=== PATIENT | male | born 1950 | race Caucasian/White ===

== ENCOUNTER 2017-06-23 13:00 | Emergency (ER) | payer OTHER ==
[~2017-06-23] VITALS: Ht 177.8 cm; Wt 80.8 kg
[2017-06-23 13:06] VITALS: BP 127/76; PULSE 67; TEMP 36.6; O2SAT 98; Ht 177.8 cm; Wt 80.8 kg
[2017-06-23] MEDS ORDERED: LISI-725 PO (13:20)
[2017-06-23] MEDS ORDERED: ASPI-435 PO (13:20)
[2017-06-23] MEDS ORDERED: ATOR-54 PO (13:20)
[2017-06-23] MEDS ORDERED: AMLO5TAB3 PO (13:20)
--- NOTE | 2017-06-23 14:10 | DIAGNOSTIC IMAGING REPORT ---
RIGHT KNEE 3 VIEWS CLINICAL HISTORY: Right knee twisting injury. FINDINGS: AP, crosstable lateral, and sunrise views of the right knee are obtained. No prior studies are available for comparison at the time of dictation. The skeletal structures are well mineralized. No fracture is seen. The joint spaces appear maintained. Minimal degenerative beaking is noted in the tibial spine. A joint effusion is suspected. Mild overlying soft tissue edema is observed. A calcified fabella is incidentally noted. IMPRESSION: Soft tissue swelling and joint effusion. No right knee fracture is seen. Electronically signed by: Ab Holliday M.D. 06/23/2017 2:09 PM Dictated Date/Time: 06/23/2017 2:08 PM
--- NOTE | 2017-06-23 14:26 | EMERGENCY ROOM VISIT NOTE ---
ED Visit Note First contact with patient: 13:16 CHIEF COMPLAINT: Right knee injury at work today HISTORY OF PRESENT ILLNESS: Patient is a 67-year-old white male who works as an instructor at [employer] who presents to the emergency department for evaluation of right knee pain after an injury that occurred about 40 half hours ago. He states he was walking and he got caught against a concrete slab and twisted the right knee. He complains of pain and swelling in the knee. He is able to bear weight, but has been limping. He was not able to take any medications, nor perform any intervention for his symptoms. He rates his discomfort a 4/10. REVIEW OF SYSTEMS: Review of systems as per HPI. All other systems reviewed were negative. At least 6 systems reviewed. PMH: Electronic medical records are reviewed and summarized as above/below. See Problem List. SOCIAL HISTORY: Patient lives at home. Nonsmoker. Employed. PHYSICAL EXAM: Vital Signs: Reviewed Nurse's notes. MENTAL STATUS: Pleasant, well-appearing 67-year-old white male who is awake and alert and in no acute distress. KNEE: Examination of the right knee noted mild extra-articular soft tissue swelling, and moderate joint effusion. There is no peripatellar tenderness, crepitus or laxity. He has tenderness along the medial joint line, he can extend fully, flexes greater than 90 without difficulty. There is no gross ligamentous instability appreciated. The skin is normal and intact. The patient walks with an antalgic gait. EMERGENCY DEPARTMENT COURSE: The patient was seen and evaluated as above. He declined any medication for discomfort. X-rays of the knee were obtained, noted soft tissue swelling and joint effusion. No acute bony abnormality. Given the patient's mechanism of injury, certainly discuss concern regarding possible meniscal or ligamentous pathology, and advised that he would need to follow-up with Worker's Compensation for further care and evaluation. He was wrapped with an Dave wrap, he declined crutches and a knee immobilizer. Medication reconciliation: I attest that I have personally reviewed the patient' s current medication list. Blood pressure screening : Patient was found to have normal blood pressure on screening and does not require follow-up. RIGHT KNEE 3 VIEWS CLINICAL HISTORY: Right knee twisting injury. FINDINGS: AP, crosstable lateral, and sunrise views of the right knee are obtained. No prior studies are available for comparison at the time of dictation. The skeletal structures are well mineralized. No fracture is seen. The joint spaces appear maintained. Minimal degenerative beaking is noted in the tibial spine. A joint effusion is suspected. Mild overlying soft tissue edema is observed. A calcified fabella is incidentally noted. IMPRESSION: Soft tissue swelling and joint effusion. No right knee fracture is seen. Problem List Medical Problems: (1) Dyslipidemia Status: Chronic (2) Hypertension Status: Chronic Current/Historical Medications Scheduled Amlodipine (Norvasc), 5 MG PO DAILY Aspirin (Aspirin 81), 81 MG PO DAILY Atorvastatin (Lipitor), 20 MG PO DAILY Lisinopril (Zestril), 20 MG PO DAILY Allergies Coded Allergies: No Known Allergies (Unverified , 06/23/17) Vital Signs Date Time Temp Pulse Resp B/P (MAP) Pulse Ox O2 Delivery O2 Flow Rate FiO2 06/23/17 13:06 36.6 67 16 127/76 98 Room Air Departure Information Impression Primary Impression: Right knee injury Additional Impression: Work-related condition Referrals Clinton Guzman M.D. (PCP) Patient Instructions [facility] Additional Instructions Ibuprofen(Motrin, Advil) may be used for fever or pain. Use 600mg every six hours as needed. Take with food. Avoid using more than 2400mg in a 24 hour period. Do not use 2400mg per day for more than three consecutive days without physician direction. Prolonged inappropriate use can lead to stomach upset or ulcers. This medication can be taken if you need to drive, work, or perform activities which may be dangerous when taking narcotic pain medication. (AND/OR) Acetaminophen(Tylenol) may be used for fever or pain. Use 1000mg every six hours as needed. Avoid using more than 3000mg in a 24 hour period. This medication can be taken if you need to drive, work, or perform activities which may be dangerous when taking narcotic pain medication. Ice compresses for 20 minutes at a time four times daily for 2-3 days. Use the DAVE wrap as instructed. Rest and elevate your injury. Continue current medications. Return to the ER immediately for any numbness, tingling, severe pain, extreme swelling in the extremity or as needed. Followup with orthopedic surgery as covered by your workers compensation insurance. May return to work without restrictions. Problem Qualifiers
== END 2017-06-23 14:56 | disposition home or self-care (01) ==
LOC: C.EDB 13:02 → C.EDD 14:56
DX: S89.91XA Unspecified injury of right lower leg, initial encounter (principal); X50.0XXA Overexertion from strenuous movement or load, initial encounter; E78.5 Hyperlipidemia, unspecified; I10 Essential (primary) hypertension; Z79.82 Long term (current) use of aspirin; Z79.899 Other long term (current) drug therapy